=== PATIENT | male | born 1970 | race Caucasian/White ===

== ENCOUNTER 2018-05-07 04:24 | Emergency (ER) | payer OTHER ==
[2018-05-07] MEDS ORDERED: MORPHINE 2 MG/ML SYR IVP ONE (04:40)
--- NOTE | 2018-05-07 04:44 | ER Report ---
History and Physical Time Seen By MD: 04:35 Hx. of Stated Complaint: SLIPPED ON ICE. 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 He was walking across the pavement and slipped on the ice, twisting his left ankle. He fell but did not strike his head or have other injuries. He attempted to stand up but noticed that his ankle was dangling. He has not ambulated since then. He notes 10 out of 10 pain. He has baseline peripheral neuropathy but does not note a change in sensation. He is able to feel and wiggle his toes. REVIEW OF SYSTEMS: Constitutional: No fever, no chills. Eyes: no blurred vision ENT: no facial injury Cardiovascular: No chest pain, no palpitations. Respiratory: No cough, no shortness of breath. Gastrointestinal: no vomiting Genitourinary: no injury Musculoskeletal: No back pain. Skin: No rashes. Neurological: No headache. Remainder of the 14 system rev: Yes (HAFSA LORENZO MD) Allergies: Coded Allergies: No Known Drug Allergies (Unverified , 05/07/18) Home Meds Active Scripts Ondansetron 4 Mg Odt (ONDANSETRON 4 MG ODT) 4 Mg Tab.rapdis, 4 MG PO Q8H for Nausea, #10 TAB Prov:HAFSA LORENZO MD 05/07/18 Hydrocodone Bit/Acetaminophen (NORCO 5-325 TABLET) 1 Each Tablet, 2 EACH PO Q4- 6H for PAIN, #20 TAB Prov:HAFSA LORENZO MD 05/07/18 Reviewed Nurses Notes: Yes (HAFSA LORENZO MD) Constitutional Vital Sign - Last 24 Hours 05/07/18 05/07/18 05/07/18 05/07/18 04:24 04:26 04:31 04:54 Temp 98.6 Pulse 99 96 100 Resp 18 B/P (MAP) 164/114 155/101 (119) Pulse Ox 89 92 88 O2 Delivery Room Air 05/07/18 05/07/18 05/07/18 05/07/18 05:00 05:24 05:29 05:30 Pulse 112 105 B/P (MAP) 159/115 (130) 149/105 (120) 05/07/18 05/07/18 05/07/18 05/07/18 05:44 05:59 06:00 06:05 Pulse 98 103 Resp 12 B/P (MAP) 150/109 (123) 154/125 (135) Pulse Ox 96 05/07/18 05/07/18 05/07/18 05/07/18 06:14 06:18 06:29 06:30 Pulse 95 Resp 31 43 B/P (MAP) 147/97 (114) 158/96 (116) Pulse Ox 96 90 (HAFSA FRY MD) Physical Exam General Appearance: The patient is alert, has no immediate need for airway pr otection and no signs of toxicity. Eyes: Pupils equal and round no pallor or injection. ENT, Mouth: Mucous membranes are moist. Respiratory: There are no retractions, lungs are clear to auscultation. Cardiovascular: Regular rate and rhythm. Gastrointestinal: Abdomen is soft and non tender, no masses, bowel sounds normal. Neurological: alert, oriented, moves all ext Skin: Warm and dry, no rashes. Musculoskeletal: Extremities are nontender, nonswollen and have full range of motion with exception of left ankle; pt has apparent deformity at left ankle with medial malleolus causing skin tenting and foot displaced laterally. He has 1+ DP pulse. He is able to move toes. DIFFERENTIAL DIAGNOSIS: After history and physical exam differential diagnosis was considered for ankle fracture, dislocation, nerve/vessel injury or other complciatin of fall (HAFSA LORENZO MD) Medical Decision Making Data Points Result Diagram: 05/07/1843005/07/18 0431 Laboratory Hematology Test 05/07/18 04:31 Red Blood Count 5.03 M/uL (4.00-5.60) Mean Corpuscular Volume 89.7 fL (80.0-96.0) Mean Corpuscular Hemoglobin 30.9 pg (26.0-33.0) Mean Corpuscular Hemoglobin Concent 34.5 g/dL (32.0-36.0) Red Cell Distribution Width 14.2 % (11.5-14.5) Mean Platelet Volume 8.7 fL (7.2-11.1) Neutrophils (%) (Auto) 55.0 % (39.4-72.5) Lymphocytes (%) (Auto) 34.6 % (17.6-49.6) Monocytes (%) (Auto) 8.3 % (4.1-12.4) Eosinophils (%) (Auto) 1.3 % (0.4-6.7) Basophils (%) (Auto) 0.8 % (0.3-1.4) Nucleated RBC Relative Count (auto) 0.1 /100WBC Neutrophils # (Auto) 3.6 K/uL (2.0-7.4) Lymphocytes # (Auto) 2.2 K/uL (1.3-3.6) Monocytes # (Auto) 0.5 K/uL (0.3-1.0) Eosinophils # (Auto) 0.1 K/uL (0.0-0.5) Basophils # (Auto) 0.1 K/uL (0.0-0.1) Nucleated RBC Absolute Count (auto) 0.01 K/uL Prothrombin Time 12.0 seconds (12.0-14.4) Prothromb Time International Ratio 0.89 Activated Partial Thromboplast Time 28 seconds (23-35) Sodium Level 138 mmol/L (137-145) Potassium Level 3.9 mmol/L (3.5-5.0) Chloride Level 103 mmol/L (98-107) Carbon Dioxide Level 25 mmol/L (22-30) Blood Urea Nitrogen 13 mg/dl (9-21) Creatinine 1.00 mg/dl (0.66-1.25) Glomerular Filtration Rate Calc > 60.0 Random Glucose 154 mg/dl (75-110) Calcium Level 9.3 mg/dl (8.4-10.2) Total Bilirubin 0.3 mg/dl (0.2-1.3) Aspartate Amino Transf (AST/SGOT) 35 U/L (0-35) Alanine Aminotransferase (ALT/SGPT) 38 U/L (0-56) Alkaline Phosphatase 72 U/L (0-126) Total Protein 7.7 g/dl (6.3-8.2) Albumin 4.7 g/dl (3.5-5.0) Chemistry Test 05/07/18 04:31 White Blood Count 6.5 k/uL (4.5-11.0) Red Blood Count 5.03 M/uL (4.00-5.60) Hemoglobin 15.6 g/dL (14.0-18.0) Hematocrit 45.1 % (42.0-52.0) Mean Corpuscular Volume 89.7 fL (80.0-96.0) Mean Corpuscular Hemoglobin 30.9 pg (26.0-33.0) Mean Corpuscular Hemoglobin Concent 34.5 g/dL (32.0-36.0) Red Cell Distribution Width 14.2 % (11.5-14.5) Platelet Count 166 K/uL (150-450) Mean Platelet Volume 8.7 fL (7.2-11.1) Neutrophils (%) (Auto) 55.0 % (39.4-72.5) Lymphocytes (%) (Auto) 34.6 % (17.6-49.6) Monocytes (%) (Auto) 8.3 % (4.1-12.4) Eosinophils (%) (Auto) 1.3 % (0.4-6.7) Basophils (%) (Auto) 0.8 % (0.3-1.4) Nucleated RBC Relative Count (auto) 0.1 /100WBC Neutrophils # (Auto) 3.6 K/uL (2.0-7.4) Lymphocytes # (Auto) 2.2 K/uL (1.3-3.6) Monocytes # (Auto) 0.5 K/uL (0.3-1.0) Eosinophils # (Auto) 0.1 K/uL (0.0-0.5) Basophils # (Auto) 0.1 K/uL (0.0-0.1) Nucleated RBC Absolute Count (auto) 0.01 K/uL Prothrombin Time 12.0 seconds (12.0-14.4) Prothromb Time International Ratio 0.89 Activated Partial Thromboplast Time 28 seconds (23-35) Glomerular Filtration Rate Calc > 60.0 Calcium Level 9.3 mg/dl (8.4-10.2) Total Bilirubin 0.3 mg/dl (0.2-1.3) Aspartate Amino Transf (AST/SGOT) 35 U/L (0-35) Alanine Aminotransferase (ALT/SGPT) 38 U/L (0-56) Alkaline Phosphatase 72 U/L (0-126) Total Protein 7.7 g/dl (6.3-8.2) Albumin 4.7 g/dl (3.5-5.0) Coagulation Test 05/07/18 04:31 Prothrombin Time 12.0 seconds Prothromb Time International Ratio 0.89 Activated Partial Thromboplast Time 28 seconds (HAFSA FRY MD) EKG/Imaging EKG Interpretation 12 lead EKG: Rhythm: Normal sinus rhythm [place]: Normal QRS: Normal ST segments: Normal Monitor Interpretation: Normal Sinus Rhythm (HAFSA LORENZO MD) ED Course/Re-evaluation ED Course 47-year-old male presents after fall and left ankle injury. No other significant injuries. Ankle is noted to have a subluxation of the talus and tib-fib fracture. I consulted Dr. Bueno who will see pt in follow up and recommends ED fracture reduction. I consented pt, and reduced fx with adequate alignment post reduction. Pt NVID in L/U splint. Will f/u with Dr. Bueno in clinic today, and at that point will decide if it would be best to await surgery here or return to home in [place] and follow up with an orthopedic surgeon there. Pt alert after sedation, able to ambulate on crutches without difficulty. Procedure Procedure: Procedural sedation. A pre-sedation evaluation was completed on the patient at 0555. Patient is an appropriate candidate for procedural sedation. The risks of the sedation were discussed with the patient. A time out was completed. The patient was sedated with etomidate. 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 patient required supportive 02 and bvm for 20 seconds. I remained at the bedside for the sedation. The total time I spent in the procedural sedation was 35 minutes Procedure: Fracture reduction. After review of the X-rays I determined that a reduction was required for improved fdc function. The left ankle was reduced using traction and manipulation without complications. An L and U splint was applied. Post reduction the patient's neurovascular exam is normal. Post reduction x-ray demonstrates improvement in fracture with an acceptable reduction of the fracture. The procedure was performed by myself.. Decision to Disposition Date: May 07, 2018 Decision to Disposition Time: 06:15 (HAFSA LORENZO MD) Depart Departure Latest Vital Signs Vital Signs Date Time Temp Pulse Resp B/P (MAP) Pulse Ox O2 Delivery O2 Flow Rate FiO2 05/07/18 06:30 158/96 (116) 05/07/18 06:29 95 43 90 05/07/18 04:26 98.6 Room Air (HAFSA FRY MD) Impression: Primary Impression: Bimalleolar ankle fracture Condition: Improved Disposition: HOME OR SELF-CARE Referrals: ROBERT BUENO MD New Scripts Ondansetron Hcl (ZOFRAN) 4 Mg Tablet 4 MG PO Q8H for Nausea, #15 TAB 0 Refills Prov: HAFSA FRY MD 05/07/18 Patient Instructions: Ankle Fracture (ED) Additional Instructions: - Call Dr. Bueno's clinic at the number we have given you, to be seen later today for reassessment and discussion of operation here vs home. - You may take 1-2 hydrocodone every 4-6 hours as needed for severe pain. You may take ibuprofen 600mg every 8 hours for pain and swelling. Keep leg elevated as high as possible above your heart, as much as possible. - If you decide to return home, do NOT drive within 6 hours of taking hydrocodone. While taking hydrocodone you should take a stool softener such as Miralax daily to prevent constipation. Please return here or to local emergency department for uncontrolled pain, numbness, or any concerns. Problem Qualifiers Primary Impression: Bimalleolar ankle fracture Encounter type: initial encounter Fracture type: closed Laterality: left Qualified Codes: S82.842A - Displaced bimalleolar fracture of left lower leg, initial encounter for closed fracture HAFSA LORENZO MD May 07, 2018 04:44 HAFSA FRY MD May 07, 2018 08:41
[2018-05-07 05:03] LABS: PLATELET COUNT, AUTOMATED 166 K/uL (150-450)
[2018-05-07 05:05] LABS: INR 0.89
[2018-05-07] MEDS ORDERED: MORPHINE 4 MG/ML SDV IVP ONE (05:20)
--- NOTE | 2018-05-07 05:25 | RADIOLOGY IMAGING REPORT ---
FACILITY: [facility] PATIENT NAME: Boubacar Templeton : 1970 MR: [id number] V: [id number] EXAM DATE: ORDERING PHYSICIAN: HAFSA LORENZO TECHNOLOGIST: Location: [facility] [place] Patient: Boubacar Templeton : 1970 Visit/Account:[id number] Date of Sevice: 05/07/2018 Left lower leg and ankle: Indication: Injury. Technique: Multiple AP, lateral, and oblique views were obtained. Comparison: None available. Findings: There is a comminuted fracture of the distal fibula. The lateral view demonstrates a fractu re at the posterior margin of the distal tibia. There is significant lateral and dorsal subluxation o f the talus. There are no definite signs of talar fracture. The proximal tibia and fibula are intact. There is normal mineralization. Moderate spur formation is observed on the calcaneus. The skeletal structures are otherwise unremarkable. There is diffuse soft tissue swelling around the left ankle. Impression: Acute fractures of the distal tibia and fibula, with significant lateral and dorsal sublu xation of the talus. Report Dictated By: Negro Singh MD at 05/07/2018 5:16 AM Report E-Signed By: Negro Singh MD at 05/07/2018 5:21 AM WSN:[id number]
--- NOTE | 2018-05-07 05:25 | RADIOLOGY IMAGING REPORT ---
FACILITY: [facility] PATIENT NAME: Boubacar Templeton : 1970 MR: [id number] V: [id number] EXAM DATE: ORDERING PHYSICIAN: HAFSA LORENZO TECHNOLOGIST: Location: [facility] Patient: Boubacar Templeton : 1970 Visit/Account:[id number] Date of Sevice: 05/07/2018 Left lower leg and ankle: Indication: Injury. Technique: Multiple AP, lateral, and oblique views were obtained. Comparison: None available. Findings: There is a comminuted fracture of the distal fibula. The lateral view demonstrates a fractu re at the posterior margin of the distal tibia. There is significant lateral and dorsal subluxation o f the talus. There are no definite signs of talar fracture. The proximal tibia and fibula are intact. There is normal mineralization. Moderate spur formation is observed on the calcaneus. The skeletal structures are otherwise unremarkable. There is diffuse soft tissue swelling around the left ankle. Impression: Acute fractures of the distal tibia and fibula, with significant lateral and dorsal sublu xation of the talus. Report Dictated By: Negro Singh MD at 05/07/2018 5:16 AM Report E-Signed By: Negro Singh MD at 05/07/2018 5:21 AM WSN:[id number]
--- NOTE | 2018-05-07 05:27 | RADIOLOGY IMAGING REPORT ---
[place] [facility] [place] Boubacar Templeton : 1970 MR: [id number] V: [id number] EXAM DATE: ORDERING PHYSICIAN: HAFSA LORENZO TECHNOLOGIST: Location: [facility] [place] Patient: Boubacar Templeton : 1970 Visit/Account:[id number] Date of Sevice: 05/07/2018 PORTABLE CHEST: Indication: Preoperative evaluation. Technique: 2 frontal images were obtained. Comparison: None available. Skeletal and soft tissue structures: Intact and unremarkable. Heart and mediastinum: Within normal limits. Lung rubin: Well-expanded and clear. Pleural spaces: Unremarkable. Impression: No acute process. Report Dictated By: Negro Singh MD at 05/07/2018 5:21 AM Report E-Signed By: Negro Singh MD at 05/07/2018 5:22 AM WSN:[id number]
[2018-05-07] MEDS ORDERED: ONDANSETRON 4 MG/2 ML VIAL ONE (05:59)
[2018-05-07] MEDS: ETOMIDATE 20 MG/10 ML VIAL IVP ONE (05:59)
[2018-05-07] MEDS ORDERED: ETOMIDATE 20 MG/10 ML VIAL ONE (06:00)
[2018-05-07] MEDS ORDERED: fentaNYL CITR 100 MCG/2 ML AMP ONE (06:00)
[2018-05-07] MEDS ORDERED: HYDR-653 PO (06:21)
[2018-05-07] MEDS ORDERED: ONDA4TAB9 PO (06:21)
[2018-05-07] MEDS ORDERED: ACET/HYDROC 5/325MG TH ER ONLY 2 TAB/BOTTLE PO ONE (06:25)
[2018-05-07] MEDS ORDERED: ONDANSETRON 4 MG ODT TH SL ONE (06:25)
--- NOTE | 2018-05-07 06:32 | EKG ---
FACILITY: [facility] PATIENT NAME: JORGE OCAMPO : [id number] MR: [id number] V: [id number] EXAM DATE: ORDERING PHYSICIAN: HAFSA LORENZO TECHNOLOGIST: VALARIE Hopson Reason : Blood Pressure : / mmHG Vent. Rate : 096 BPM Atrial Rate : 096 BPM P-R Int : 156 ms QRS Dur : 096 ms QT Int : 352 ms P-R-T Axes : 042 071 000 degrees QTc Int : 444 ms Normal sinus rhythm Normal ECG No previous ECGs available Confirmed by Phani Taylor ([id number]) on 05/08/2018 12:04:37 AM Referred By: Confirmed By:hPani Kat
[2018-05-07] MEDS ORDERED: NS(*) 0.9% 1000 ML BAG 1,000 ML IV ONE (06:40)
--- NOTE | 2018-05-07 06:41 | RADIOLOGY IMAGING REPORT ---
FACILITY: [facility] - [place], [place] PATIENT NAME: Boubacar Templeton : 1970 MR: [id number] V: [id number] EXAM DATE: ORDERING PHYSICIAN: HAFSA LORENZO TECHNOLOGIST: Location: [facility] Patient: Boubcaar Templeton : 1970 Visit/Account:[id number] Date of Sevice: 05/07/2018 ANKLE 3 VIEW MIN LEFT Indication: Postreduction. Comparison: 05/07/2018 at 4:50 AM. Findings: 3 views of the left ankle. Interval reduction of the mortise joint dislocation. There is mild persistent mild lateral subluxatio n with mild widening of the medial clear space. Acute comminuted and displaced fracture of the distal fibula at the level of the tibiofibular syndesm osis. Mildly displaced posterior malleolus fracture. Calcaneal bone spurs. Impression: 1. Interval reduction of the mortise joint dislocation. There is mild persistent mild lateral subluxa tion with mild widening of the medial clear space. 2. Acute comminuted and displaced fracture of the distal fibula at the level of the tibiofibular synd esmosis. Mildly displaced posterior malleolus fracture. Report Dictated By: Mike Lopez MD at 05/07/2018 6:30 AM Report E-Signed By: Mike Lopez MD at 05/07/2018 6:35 AM WSN:[id number]
[2018-05-07] MEDS ORDERED: APAP/HYDROCODONE 325/5 TAB PO ONE (08:10)
[2018-05-07] MEDS ORDERED: ONDA4TAB97 PO (08:41)
[2018-05-07] MEDS ORDERED: LOR5/325 PO (08:41)
== END 2018-05-07 09:00 | disposition home or self-care (01) ==
LOC: ER 05:05
DX: S82.842A Displaced bimalleolar fracture of left lower leg, initial encounter for closed fracture (principal); W00.0XXA Fall on same level due to ice and snow, initial encounter; Z21 Asymptomatic human immunodeficiency virus [HIV] infection status; E11.9 Type 2 diabetes mellitus without complications; I10 Essential (primary) hypertension
CPT/HCPCS: 27810; 71045; 73590; 73610; 85025; 85610; 85730; 93005; 96361; 96374; 96375; 96376; 99152; 99153; 99285; J2270; J3490; J7030; S0119; 82040; 82247; 82310; 82374; 82435; 82565; 82947; 84075; 84132; 84155; 84295; 84450; 84460; 84520

== ENCOUNTER → 2018-05-07 | Outpatient (CLI) | payer OTHER ==
[~2018-05-07] MED LIST: HYDR-653 PO; LOR5/325 PO; ONDA4TAB9 PO; ONDA4TAB97 PO
== END ==
LOC: AMB 03:44
PROVIDERS: ATTEND Nurse Practitioner
DX: M25.572 Pain in left ankle and joints of left foot (principal); W01.0XXA Fall on same level from slipping, tripping and stumbling without subsequent striking against object, initial encounter
CPT/HCPCS: A0425; A0429